=== PATIENT | male | born 1965 | race Two or more races ===

== ENCOUNTER → 2024-05-07 | Outpatient (CLI) | payer MEDICAID, SELFPAY ==
--- NOTE | 2024-05-07 | XR_ITS ---
Examination: PA lateral chest 2 views TECHNIQUE: Upright PA lateral chest 2 views Exam date and time: May 07, 2024 1205 hours INDICATIONS: Positive TB skin test FINDINGS: Mild enlargement cardiac contour Cardiac leads satisfactory position. No pneumonia or pulmonary edema Mild osteopenia IMPRESSION: No active disease No radiographic findings of tuberculosis
== END | disposition home or self-care (01) ==
PROVIDERS: Referring Provider Dermatology; Visit Provider Dermatology
DX: R76.12 Nonspecific reaction to cell mediated immunity measurement of gamma interferon antigen response without active tuberculosis (principal)
CPT/HCPCS: 71046

== ENCOUNTER → 2025-01-22 | Outpatient (CLI) | payer MEDICAID, SELFPAY ==
--- NOTE | 2025-01-22 14:30 | XR_ITS ---
Examination: Retroperitoneal ultrasound, complete Technique: Multiple high resolution grayscale images of the retroperitoneum obtained, including kidneys and bladder. Exam date and time:January 22, 2025 1441 hours INDICATIONS: Chronic kidney disease stage III on laboratory examination 2 weeks ago FINDINGS: Right kidney 11.1 cm cortex 2.1 cm Midpole 11 mm cyst Left kidney 13.1 cm cortex 2.2 cm Lower pole 25 mm cyst Moderate renal parenchymal scar formation, no hydronephrosis Bladder prevoid volume 131 cc postvoid volume 28 cc Negative for prostatomegaly no prostate nodules IMPRESSION: Moderate bilateral renal parenchymal scar formation No hydronephrosis
== END | disposition home or self-care (01) ==
LOC: CDIM 14:25
PROVIDERS: PCP Emergency Medicine; Referring Provider Internal Medicine Nephrology; Visit Provider Internal Medicine Nephrology
DX: N28.89 Other specified disorders of kidney and ureter (principal); N18.31 Chronic kidney disease, stage 3a
CPT/HCPCS: 76770

== ENCOUNTER → 2025-04-17 | Outpatient (CLI) | payer MEDICAID, SELFPAY ==
--- NOTE | 2025-04-17 10:50 | XR_ITS ---
EXAMINATION: PA chest single view TECHNIQUE: Upright PA chest single view Date and time: November 06, 2024, 1103 hours, comparison May 07, 2024 INDICATIONS: Positive PPD skin test this week FINDINGS: Mild prominence left ventricle Unipolar ventricular cardiac leads satisfactory position Mild prominence central pulmonary vasculature. No pneumonia or pulmonary edema IMPRESSION: No active disease No radiographic findings of active tuberculosis
== END | disposition home or self-care (01) ==
LOC: CDIM 10:41
PROVIDERS: PCP Nurse Practitioner Family; Referring Provider Nurse Practitioner Family; Visit Provider Nurse Practitioner Family
DX: L20.89 Other atopic dermatitis (principal)
CPT/HCPCS: 71046

== ENCOUNTER → 2025-04-24 | Outpatient (CLI) | payer MEDICAID, SELFPAY ==
--- NOTE | 2025-04-24 08:40 | XR_ITS ---
Examination: Pelvic ultrasound, transabdominal, complete Technique: Transabdominal ultrasound of the pelvis performed using grayscale imaging Date and time of exam: April, 0916 hours INDICATIONS: Left-sided pelvic pain beginning 1 week ago. FINDINGS: Bladder prevoid volume 280 cc no bladder mass Prostate obscured by bowel gas IMPRESSION: Limited study No diagnostic visualization of the prostate
--- NOTE | 2025-04-24 08:40 | XR_ITS ---
Examination: Abdomen sonogram, complete Date and time of exam: April 24, 2025, 0933 hours INDICATIONS: Left lower abdominal pain beginning 1 week ago.. Technique: Multiple real-time grayscale transabdominal sonographic images of the abdomen have been obtained. Findings: Normal gallbladder Normal common bile duct 0.3 cm Pancreatic head 3.3 cm Proximal aorta visualized not enlarged Liver 17.1 cm irregular contour fatty infiltration Normal hepatopetal portal venous flow Patent IVC Right kidney 11.3 cm renal cortex 2.4 cm 13 mm midpole cyst Left kidney 12.6 cm and cortex 1.9 cm Multiple cysts, the largest in the lower pole 26 mm Moderate renal scar formation Spleen 12.7 cm IMPRESSION: Normal gallbladder Suspect primary hepatocellular disease no focal liver lesions Moderate renal scar formation
== END | disposition home or self-care (01) ==
PROVIDERS: PCP Nurse Practitioner Family; Referring Provider Nurse Practitioner Family; Visit Provider Nurse Practitioner Family
DX: R10.32 Left lower quadrant pain (principal); N28.89 Other specified disorders of kidney and ureter
CPT/HCPCS: 76700; 76856